=== PATIENT | male | born 1950 | race Caucasian/White ===

== ENCOUNTER 2017-11-16 12:29 | Day surgery (SDC) | payer MEDICARE, OTHER ==
[2017-11-16] VITALS (9 sets, daily range): BP systolic 97–122; BP diastolic 56–74; PULSE 48–73; TEMP 98.9
[~2017-11-16] VITALS: Ht 180.3 cm; Wt 79.0 kg
[2017-11-16] MEDS ORDERED: ASPIRIN E.C. 8181 MG PO (12:42)
[2017-11-16] MEDS ORDERED: B-121000 MCG PO (12:43)
[2017-11-16] MEDS ORDERED: VITAMIN E1000 U/CAP PO (12:43)
[2017-11-16] MEDS ORDERED: VITAMIN B COMPL1 SGL PO (12:43)
[2017-11-16] MEDS ORDERED: VITAMIN D31000 I1 PO (12:44)
[2017-11-16] MEDS ORDERED: MULTIPLE VITAMI1 CAP PO (12:44)
[2017-11-16] MEDS ORDERED: SAW PALMETTO 101 SGL PO (12:44)
[2017-11-16 13:04] LABS: HEMATOCRIT 41.3 % (42.0-52.0); HEMOGLOBIN 14.5 g/dl (13.5-18.0); MEAN CELL VOLUME 99 fl (80.0-100.0); MEAN CORPUSCULAR HEMOGLOBIN 35 pg (27.0-31.0); MEAN CORPUSCULAR HGB CONC 35 g/dl (33.0-37.0); MEAN PLATELET VOLUME 9.8 fl (7.4-10.4); PLATELET COUNT 129 K/mm3 (130-400); RED BLOOD COUNT 4.16 M/mm3 (4.20-5.60); REDCELL DISTRIBUTION WIDTH-CV 11.8 % (11.5-14.5)
[2017-11-16 13:09] LABS: PROTHROMBIN TIME 11.5 SECONDS (9.7-12.8)
[2017-11-16 13:14] LABS: CALCIUM 8.8 mg/dL (8.4-10.2); CHOLESTEROL RISK RATIO 3.2; CREATININE, serum 0.73 mg/dL (0.66-1.25); POTASSIUM 3.9 mmol/L (3.4-5.0)
== END 2017-11-16 19:00 | disposition home or self-care (01) ==
LOC: COL.CAR 12:29
PROVIDERS: Internal Medicine Cardiovascular Disease
DX: R94.39 Abnormal result of other cardiovascular function study (principal); R07.89 Other chest pain; R00.1 Bradycardia, unspecified; R42 Dizziness and giddiness; R53.83 Other fatigue; R06.83 Snoring; Z79.82 Long term (current) use of aspirin; F17.220 Nicotine dependence, chewing tobacco, uncomplicated; Z80.1 Family history of malignant neoplasm of trachea, bronchus and lung
CPT/HCPCS: C1769; C1887; J1200; J1644; J2250; J3010; J7040; Q9967

== ENCOUNTER → 2019-11-21 | Outpatient (CLI) | payer MEDICARE, OTHER ==
[~2019-11-21] MED LIST: ASPIRIN E.C. 8181 MG PO; B-121000 MCG PO; MULTIPLE VITAMI1 CAP PO; SAW PALMETTO 101 SGL PO; VITAMIN B COMPL1 SGL PO; VITAMIN D31000 I1 PO; VITAMIN E1000 U/CAP PO
== END ==
LOC: COL.RAD 09:09
DX: N28.1 Cyst of kidney, acquired (principal); D72.819 Decreased white blood cell count, unspecified

== ENCOUNTER → 2022-01-14 | Outpatient (CLI) | payer MEDICARE, OTHER | LOC: COL.RAD 10:57 | DX: G31.1 Senile degeneration of brain, not elsewhere classified (principal); G47.52 REM sleep behavior disorder; G31.84 Mild cognitive impairment of uncertain or unknown etiology ==

== ENCOUNTER → 2023-11-03 | Outpatient (CLI) | payer MEDICARE, OTHER | LOC: COL.RAD 16:08 | DX: G44.85 Primary stabbing headache (principal) ==